=== PATIENT | male | born 1985 | race African-American/Black ===

== ENCOUNTER 2017-08-09 17:16 | Emergency (ER) | payer OTHER ==
[~2017-08-09] VITALS: Ht 185.4 cm; Wt 93.0 kg
[~2017-08-09 17:16] MED LIST: PYRI200T4 PO; Z.0.NO CURRENT MEDS
[2017-08-09 17:17] VITALS: BP 132/78; PULSE 73; RESP 14; TEMP 98.1; O2SAT 100
[2017-08-09] MEDS ORDERED: LIDOCAINE 2%/EPINEPHrine 1:100,000 20ML MDV NERV BLOCK ONE (18:15)
[2017-08-09] MEDS ORDERED: TETANUS/DIPHTHERIA TOXOID ADULT 0.5 ML VIAL IM ONE (18:15)
--- NOTE | 2017-08-09 18:42 | PD ---
HPI Chief Complaint: Laceration/Skin Injury Time Seen by Provider: 17:53 Travel History International Travel<30 days: No Contact w/Intl Traveler<30days: No Traveled to known affect area: No History of Present Illness HPI 32-year-old Afro-[place] male presents the emergency department status post laceration to the right medial index finger from sharp object at a local store. Patient states moderate pain and bleeding. No numbness or tingling noted. Sensation seems intact. Normal strength. Unsure of his last tetanus shot. Pain is 8 out of 10. He has no known drug allergies. [facility] Past Medical History Medical History: Denies Significant Hx Tetanus Vaccination: Unknown Influenza Vaccination: Yes Past Surgical History Surgical History: No Previous Surgery Social History Alcohol Use: No Tobacco Use: No Substance Use: No Allergies-Medications (Allergen,Severity, Reaction): Coded Allergies: No Known Allergies (Verified Adverse Reaction, Unknown, 08/09/17) Reported Meds & Prescriptions Reported Meds & Active Scripts Active No Active Prescriptions or Reported Medications Review of Systems Except as stated in HPI: all other systems reviewed are Neg General / Constitutional: No: Fever Eyes: No: Visual changes HENT: No: Headaches Cardiovascular: No: Chest Pain or Discomfort Respiratory: No: Shortness of Breath Gastrointestinal: No: Abdominal Pain Genitourinary: No: Dysuria Musculoskeletal: No: Pain Skin: No Rash Neurologic: No: Weakness Psychiatric: No: Depression Endocrine: No: Polydipsia Hematologic/Lymphatic: No: Easy Bruising Physical Exam Narrative GENERAL: Patient is mildly anxious otherwise in mild distress. SKIN: Warm and dry. Normal color. Normal turgor. Patient has flap-like V- shaped laceration to the lateral right index finger over the MIP Joint. No signs of joint capsule involvement. HEAD: Atraumatic. Normocephalic. EYES: Pupils equal and round. No scleral icterus. No injection or drainage. ENT: No nasal bleeding or discharge. Mucous membranes pink and moist. NECK: Trachea midline. No JVD. CARDIOVASCULAR: Regular rate and rhythm. RESPIRATORY: No accessory muscle use. Clear to auscultation. Breath sounds equal bilaterally. GASTROINTESTINAL: Abdomen soft, non-tender, nondistended. Hepatic and splenic margins not palpable. MUSCULOSKELETAL: Extremities without clubbing, cyanosis, or edema. No obvious deformities. [employer] House [employer] strength is normal. Distal neurovascular exam is normal. NEUROLOGICAL: Awake and alert. No obvious cranial nerve deficits. Motor grossly within normal limits. Five out of 5 muscle strength in the arms and legs. Normal speech. PSYCHIATRIC: Appropriate mood and affect; insight and judgment normal. Data Data Last Documented VS Vital Signs Date Time Temp Pulse Resp B/P (MAP) Pulse Ox O2 Delivery O2 Flow Rate FiO2 08/09/17 17:28 17 18 17:17 98.1 73 132/78 (96) 100 Orders Orders Tetanus/Diphtheria Tox Adult (Tetanus/Di (08/09/17 18:15) Lidocai-Epi 2%-1:100,000 Inj (Xylocaine- (08/09/17 18:15) MDM Medical Decision Making Medical Screen Exam Complete: Yes Emergency Medical Condition: Yes Differential Diagnosis Right finger laceration. Need for tetanus. Need for suture. Narrative Course Digital block is placed. Laceration is repaired. See procedure note. Dressing placed and should remain in place for 48 hours. Patient will be placed on Keflex 500 mg 3 times a day 3 days. Sutures should remain in place for 7 days. Patient to follow up with symptoms of cellulitis develop. Procedures Procedure Narrative LACERATION LOCATION: Right lateral index finger LENGTH: 0.5 cm NUMBER OF STITCHES/WOLFGANG: 4 simple interrupted REPAIR: The area of the laceration was prepped with Betadine and sterilely draped. Digital block was placed consisting of a 3 mL 2% lidocaine with adequate. The wound was copiously irrigated and explored without evidence of foreign body, tendon injury or neurovascular injury. The wound was closed using 5-0 Prolene. This was a single layer repair. A sterile dressing was applied. The patient was advised to keep the dressing clean and dry. Patient tolerated the procedure well. Diagnosis Primary Impression: Laceration of right index finger Qualified Codes: S61.210A - Laceration without foreign body of right index finger without damage to nail, initial encounter Referrals: Primary Care Physician Patient Instructions: Finger Laceration (ED), General Instructions Additional Instructions: Dressing placed and should remain in place for 48 hours. Patient will be placed on Keflex 500 mg 3 times a day 3 days. Sutures should remain in place for 7 days. Patient to follow up with symptoms of cellulitis develop. Med/Other Pt SpecificInfo: Prescription(s) given Scripts No Active Prescriptions or Reported Meds Disposition: DISCHARGE HOME Condition: Stable Nader Mendoza Aug 09, 2017 18:42
[2017-08-09] MEDS ORDERED: CEPH-460 PO (18:43)
== END 2017-08-09 19:09 | disposition home or self-care (01) ==
LOC: NEPD 17:16
DX: S61.210A Laceration without foreign body of right index finger without damage to nail, initial encounter (principal); W26.9XXA Contact with unspecified sharp object(s), initial encounter; Y92.512 Supermarket, store or market as the place of occurrence of the external cause; Z23 Encounter for immunization
CPT/HCPCS: 12001; 90471; 90714